=== PATIENT | female | born 1995 | race Two or more races ===

== ENCOUNTER 2020-11-06 12:15 | Emergency (ER) | payer OTHER ==
[~2020-11-06] VITALS: Ht 157.5 cm; Wt 58.1 kg
[2020-11-06 12:22] VITALS: Ht 157.5 cm; Wt 58.1 kg
[2020-11-06 13:17] LABS: UA SPECIFIC GRAVITY 1.015 (1.005-1.035); microscopic required? YES; urine erythrocyte 1+ (NEGATIVE)
[2020-11-06 14:46] LABS: BASOPHIL % 0.6 % (0.2-1.3); PLATELET COUNT 321 x10^3mcL (179-408); RED CELL DISTRIBUTION WIDTH 12.9 % (12.3-17.7)
[2020-11-06 14:58] LABS: CHLORIDE SERUM 100 mmol/L (98-107); GFR1 > 60 mL/min; SODIUM SERUM 139 mmol/L (136-145)
[2020-11-06 15:03] LABS: CALCIUM 9.5 mg/dL (8.5-10.1); CARBON DIOXIDE 24.9 mmol/L (21-32); CREATININE SERUM 0.7 mg/dL (0.6-1.0); GLUCOSE SERUM 80 mg/dL (74-106); POTASSIUM SERUM 4.1 mmol/L (3.5-5.1)
[2020-11-06 15:16] LABS: ALBUMIN 4.3 g/dL (3.4-5.0); ALKALINE PHOSPHATASE 70 U/L (46-116); ALT/SGPT 44 U/L (14-59); AST/SGOT 16 U/L (15-37); BILIRUBIN TOTAL 0.54 mg/dL (0.20-1.00); LIPASE 138 IU/L (73-393)
[2020-11-06 15:17] LABS: TOTAL PROTEIN, SERUM 8.6 g/dL (6.4-8.2)
[2020-11-06] MEDS ORDERED: ZITHROMAX Z-PA250 MG PO (15:28)
[2020-11-06] MEDS ORDERED: PROBIOTIC1 EAC2 PO (15:28)
[2020-11-06 16:21] VITALS: BP 1260/52
== END 2020-11-06 16:21 | disposition home or self-care (01) ==
LOC: ED 12:15
PROVIDERS: Emergency Medicine
DX: U07.1 COVID-19 (principal); K52.9 Noninfective gastroenteritis and colitis, unspecified; Z88.1 Allergy status to other antibiotic agents
CPT/HCPCS: 87046; 87046-59; U0003

== ENCOUNTER 2020-11-07 22:03 | Inpatient (IN) | payer OTHER ==
[~2020-11-07] VITALS: Ht 157.5 cm; Wt 57.3 kg
[~2020-11-07 22:03] MED LIST: PROBIOTIC1 EAC2 PO; ZITHROMAX Z-PA250 MG PO
[2020-11-07 22:34] VITALS: Ht 157.5 cm; Wt 57.3 kg
--- NOTE | 2020-11-07 23:30 | NUR ---
RECEIVED PT IN ROOM, PT AOX4, SKIN W/D/I, RESP EVEN AND UNLABORED ON RA, VSS, NAD, 3/10 PAIN TO RUQ ABD. PT STATES N/V/D AND ABD PAIN X FEW DAYS. PT STABLE AT THIS TIME
[2020-11-08 00:48] LABS: BASOPHIL % 0.6 % (0.2-1.3); PLATELET COUNT 339 x10^3mcL (179-408); RED CELL DISTRIBUTION WIDTH 12.7 % (12.3-17.7)
[2020-11-08 00:56] LABS: UA SPECIFIC GRAVITY 1.015 (1.005-1.035); microscopic required? YES; urine erythrocyte 2+ (NEGATIVE)
--- NOTE | 2020-11-08 01:03 | NUR ---
PT AOX4, SKIN W/D/I, RESP EVEN AND UNLABORED, NAD, NSR ON MONITOR, AMB WITH STEADY GAIT, CALL LIGHT WITHIN REACH, PT STABLE AT THIS TIME
[2020-11-08 01:05] LABS: CALCIUM 9.2 mg/dL (8.5-10.1); CARBON DIOXIDE 21.1 mmol/L (21-32); CHLORIDE SERUM 97 mmol/L (98-107); CREATININE SERUM 0.8 mg/dL (0.6-1.0); GFR1 > 60 mL/min; GLUCOSE SERUM 71 mg/dL (74-106); POTASSIUM SERUM 3.7 mmol/L (3.5-5.1); SODIUM SERUM 136 mmol/L (136-145)
[2020-11-08 01:10] LABS: ALBUMIN 3.9 g/dL (3.4-5.0); ALKALINE PHOSPHATASE 64 U/L (46-116); ALT/SGPT 30 U/L (14-59); AST/SGOT 11 U/L (15-37); BILIRUBIN TOTAL 0.53 mg/dL (0.20-1.00)
[2020-11-08] MEDS ORDERED: PEPCID AC20 M2 (02:58)
[2020-11-08] MEDS ORDERED: ZOF4 PO (02:58)
--- NOTE | 2020-11-08 03:05 | NUR ---
REPORT GIVEN TO ZENIA
--- NOTE | 2020-11-08 03:15 | NUR ---
PT. ADMITTED TO THE [facility]ST FLOOR FROM THE ER AT 0315 VIA WHEELCHAIR ACCOMPANIED BY [employer], A&OX4, EASILY AROUSABLE, ABLE TO FOLLOW COMMANDS, RR EVEN AND UNLABORED ON RA, CHEST RISE SYMT, PULSES PALBABLE BUE/BLE, NO EDEMA NOTED, RAC 20 G IV INTACT AND WNL, BED IN LOWEST POSITION, CALL LIGHT WITHIN REACH, SR UPX2, WILL CONT TO MONITOR.
--- NOTE | 2020-11-08 03:18 | NUR ---
PT TRANSPORTED TO [facility] VIA WHEELCHAIR BY AMY POZO
[2020-11-08 03:40] VITALS: BP 116/69
--- NOTE | 2020-11-08 06:47 | NUR ---
PT. RESTING IN BED W/ EYES CLOSED, NO ACUTE CHANGE/ DISTRESS NOTED, ALL SAFETY MEASURES IN PLACE, WILL CONT TO MONITOR.
--- NOTE | 2020-11-08 07:30 | NUR ---
RECEIVES PATIENT FROM SEWING INSPECTOR NURSE. PT IS RESTING IN BED. ALERT AND ORIENTED. MED/SURG PATIENT. BREATHING E/U, NO ACUTE RESP DISTRESS NOTED. NO EDEMA NOTED. PERIPHERAL PULSES PALPABLE, LAST BM 11/08 LOOSE. AMBULATORY. SKIN CDI. DENIES PAIN/DISCOMFORT AT THIS TIME. LAC IV 22G, RUNNING NS AT 80ML/HR, INFUSING WELL. LAB REPORTS THAT PCR RESULT IS POSITIVE TODAY, PLACE PATIENT IN DROPLET ISOLATION AT TIMES
[2020-11-08 09:03] VITALS: BP 104/63
[2020-11-08 09:53] VITALS: BP 108/76
[2020-11-08 13:27] VITALS: BP 117/75
[2020-11-08 16:52] VITALS: BP 121/78
--- NOTE | 2020-11-08 18:13 | NUR ---
PT IS AWAKE, ALERT AND ORIENTED. BREATHING E/U, NO ACUTE RESP DISTRESS NOTED, ON ROON AIR, SPO2 WNL. PT IS ON CLEAR LIQUID DIET. DENIES N/V/PAIN/DISCOMFORT. IV ACCESS TO LAC RUNNING NS AT 80ML/HR INFUSING WELL, SITE WNL. IN DROPLET ISOLATION FOR CVD+. CALL LIGHT WITHIN REACH, BED AT LOWEST POSITION. WILL ENDORSE TO [employer] FERRY OPERATOR NURSE
--- NOTE | 2020-11-08 19:30 | NUR ---
PT. REPORT RECIEVED FROM DAY SHIFT NURSE, PT. RESTING IN BED, EASILY AROUSABLE, ABLE TO LET NEEDS KNOWN, A&OX4, RR EVEN AND UNLABORED ON RA, CHEST RISE SYMT, M/S PT, PT. DENIES CHEST PAIN/ PRESSURE, LAC IV INTACT AND WNL, BED IN LOWEST POSITION, CALL LIGHT WITHIN REACH, SR UPX2, WILL CONT TO MONITOR.
[2020-11-08 20:08] VITALS: BP 113/77
[2020-11-09 05:07] VITALS: BP 113/67
--- NOTE | 2020-11-09 06:00 | NUR ---
AT APROX: 0500 PT. BEGAN TO EXPERIENCE ABD PAIN RATE IT AN 8 OUT OF 10 AND NAUSEA, PROVIDED MEDICATIONS PER EMAR, WILL CONT TO MONITOR.
--- NOTE | 2020-11-09 06:54 | NUR ---
PT. RESTING IN BED, EASILY AROUSABLE, RR EVEN AND UNLABORED ON RA, CHEST RISE SYMT, M/S PT, LAC IV INTACT AND WNL, ALL SAFETY MEASURES IN PLACE, WILL ENDORSE TO DAY SHIFT NURSE.
[2020-11-09 07:25] LABS: BASOPHIL % 0.5 % (0.2-1.3); PLATELET COUNT 305 x10^3mcL (179-408); RED CELL DISTRIBUTION WIDTH 12.8 % (12.3-17.7)
[2020-11-09 08:31] LABS: ALBUMIN 3.2 g/dL (3.4-5.0); ALKALINE PHOSPHATASE 50 U/L (46-116); ALT/SGPT 22 U/L (14-59); AST/SGOT 7 U/L (15-37); BILIRUBIN TOTAL 0.31 mg/dL (0.20-1.00); CALCIUM 8.7 mg/dL (8.5-10.1); CARBON DIOXIDE 21.2 mmol/L (21-32); CHLORIDE SERUM 103 mmol/L (98-107); CREATININE SERUM 0.7 mg/dL (0.6-1.0); GFR1 > 60 mL/min; GLUCOSE SERUM 88 mg/dL (74-106); POTASSIUM SERUM 3.7 mmol/L (3.5-5.1); SODIUM SERUM 139 mmol/L (136-145); TOTAL PROTEIN, SERUM 6.9 g/dL (6.4-8.2)
[2020-11-09 09:04] VITALS: BP 105/75
[2020-11-09 12:43] VITALS: BP 115/68
--- NOTE | 2020-11-09 19:30 | NUR ---
PT RECEIVED FROM DAY RN. A/ O X 4. DENIES SOB OR CHEST PAIN. RESIPIRATIONS ARE E/U ON RA, LUNG SOUNDS CLEAR, SPO2 99%. M/S PATIENT, S1 AND S2 AUSCULTATED. PULSES MODERATE, NO EDEMA. BOWEL SOUNDS ACTIVE X 4, NO BLOODY STOOLS TODAY. ABD SOFT, NONTENDER AND NONDISTENDED. AMBULATORY, BSC AT BEDSIDE. SKIN INTACT. DENIES PAIN, NS RUNNING 80 ML / HOUR VIA L AC 22 G. COOPERATIVE, CALL LIGHT WITHIN REACH.
[2020-11-09 20:50] VITALS: BP 121/81
--- NOTE | 2020-11-10 01:08 | NUR ---
PT. AWAKE AT THIS TIME. A/O X 4. DENIES CHEST PAIN OR SOB. LYING IN BED. NO COMPLAINTS OF N/V. CALL LIGHT WITHIN REACH.
[2020-11-10 05:20] VITALS: BP 108/71
--- NOTE | 2020-11-10 05:40 | NUR ---
PT STATES THEY HAD A BOWEL MOVEMENT WITH SCANT AMOUNT OF BLOOD. PT DENIES ADB PAIN. C/O N/V, MEDICATED WITH REGLAN PRN.
--- NOTE | 2020-11-10 06:09 | NUR ---
AWAKE AT THIS TIME. A/O X 4. DENIES SOB OR CHEST PAIN. PT REMAINS ON RA, BREATHING E/U, SPO2 IS 99 % THIS AM. PATIENT HAD NAUSEA EARLIER THIS SHIFT, ADMINISTERED REGLAN PRN. NO RECTAL BLEEDING AT THIS TIME. NO CRITICAL CHANGES OVERNIGHT, ALL ORDERS/PROTOCOLS FOLLOWED. CALL LIGHT WITHIN REACH, WILL ENDORSE TO DAY RN.
[2020-11-10 07:30] LABS: BASOPHIL % 0.3 % (0.2-1.3); PLATELET COUNT 334 x10^3mcL (179-408)
[2020-11-10 08:16] LABS: ALBUMIN 3.6 g/dL (3.4-5.0); ALKALINE PHOSPHATASE 56 U/L (46-116); ALT/SGPT 25 U/L (14-59); AST/SGOT 12 U/L (15-37); BILIRUBIN TOTAL 0.3 mg/dL (0.20-1.00); CALCIUM 8.7 mg/dL (8.5-10.1); CARBON DIOXIDE 26.5 mmol/L (21-32); CHLORIDE SERUM 102 mmol/L (98-107); CREATININE SERUM 0.6 mg/dL (0.6-1.0); GFR1 > 60 mL/min; GLUCOSE SERUM 85 mg/dL (74-106); SODIUM SERUM 139 mmol/L (136-145); TOTAL PROTEIN, SERUM 7.5 g/dL (6.4-8.2)
[2020-11-10 08:43] VITALS: BP 121/77
[2020-11-10] MEDS ORDERED: FLA250 PO (11:20)
[2020-11-10] MEDS ORDERED: LEVAQUIN500 M1 PO (11:21)
[2020-11-10] MEDS ORDERED: LOPERAMIDE HCL2 M1 PO (11:24)
[2020-11-10 12:16] VITALS: BP 124/87
[2020-11-10 12:42] VITALS: BP 124/87
--- NOTE | 2020-11-10 13:10 | NUR ---
TOLERATED REGULAR DIET. DISCHARGE INSTRUCTIONS PROVIDED, QUESTIONS ANSWERED, VERBALIZED UNDERSTANDING. PER PATIENT HER MOTHER WILL PICK HE RUP BETWEEN 4-5 PM. WILL INFORM CHARGE NURSE.
== END 2020-11-10 16:18 | disposition home or self-care (01) | DRG 137 ==
LOC: ED 22:03 → MU 11-08 01:51
PROVIDERS: Emergency Medicine; ADMIT Hospitalist; ATTEND Hospitalist
DX: U07.1 COVID-19 (principal); K52.9 Noninfective gastroenteritis and colitis, unspecified; K62.89 Other specified diseases of anus and rectum; Z79.899 Other long term (current) drug therapy; Z88.8 Allergy status to other drugs, medicaments and biological substances; Z80.0 Family history of malignant neoplasm of digestive organs
CPT/HCPCS: 87046; 87046-59; G0378; J1885; J1956; J2270; J2765; J3490; J7030